=== PATIENT | male | born 1930 | race Caucasian/White ===

== ENCOUNTER 2018-06-13 11:46 | Inpatient (IN) | payer MEDICARE, OTHER ==
[~2018-06-13] VITALS: Ht 180.3 cm; Wt 90.0 kg
[~2018-06-13 11:46] MED LIST: LIPITOR PO; LISINOPRIL; METOPROLOL PO; NITROQUICK
[2018-06-13] MEDS ORDERED: SODIUM CHLORIDE 0.9% 1000ML 1,000 ML IV STA (12:10)
[2018-06-13 12:28] LABS: BASOPHILS # (AUTO) 0.2 (0.0-0.1); BASOPHILS % 0.9 % (0.0-1.0); EOSINOPHILS # (AUTO) 0.3 (0.0-0.4); EOSINOPHILS % 1.1 % (0.0-6.0); LYMPHOCYTES # (AUTO) 1.1 (1.0-3.2); LYMPHOCYTES % 4.9 % (18.0-39.1); MEAN CORPUSCULAR HEMOGLOBIN 27.2 pg (28-32); MEAN CORPUSCULAR HGB CONC 31.7 g/dL (31-35); MEAN CORPUSCULAR VOLUME 85.8 fL (81-99); MONOCYTES # (AUTO) 4.5 (0.2-0.8); MONOCYTES % 19.7 % (4.4-11.3); NEUTROPHILS # (AUTO) 16.2 (2.1-6.9); NEUTROPHILS % 71.9 % (38.7-80.0); PLATELET COUNT 585 x10e3/uL (140-360); RED BLOOD COUNT 4.78 x10e6/uL (4.3-5.7); RED CELL DISTRIBUTION WIDTH 15.4 % (11.7-14.4)
[2018-06-13 12:38] LABS: INR 1.04; PROTHROMBIN TIME 14.5 seconds (11.9-14.5)
[2018-06-13 12:39] LABS: PARTIAL THROMBOPLASTIN TIME 36.9 seconds (23.8-35.5)
[2018-06-13 12:45] LABS: ALANINE AMINOTRANSFERASE 10 IU/L (0-55); ALBUMIN 3.8 g/dL (3.5-5.0); ALBUMIN/GLOBULIN RATIO 1.4 (0.8-2.0); ALKALINE PHOSPHATASE 95 IU/L (40-150); ANION GAP 15.9 mmol/L (8-16); BLOOD UREA NITROGEN 25 mg/dL (7-26); BUN/CREATININE RATIO 20 (6-25); CALCIUM 9.1 mg/dL (8.4-10.2); CARBON DIOXIDE 26 mmol/L (22-29); CHLORIDE 103 mmol/L (98-107); CREATINE KINASE 15 IU/L (30-200); CREATININE, SERUM 1.23 mg/dL (0.72-1.25); EST GLOMERULAR FILTRATION RATE 55 ML/MIN (60-); GLUCOSE 141 mg/dL (74-118); POTASSIUM 3.9 mmol/L (3.5-5.1); SODIUM 141 mmol/L (136-145)
[2018-06-13 13:18] LABS: CLARITY,URINE CLEAR (CLEAR); COLOR,URINE YELLOW (YELLOW); LEUKOCYTE ESTERASE ,URINE NEGATIVE (NEGATIVE); NITRITE,URINE NEGATIVE (NEGATIVE); PROTEIN,URINE DIPSTICK 1+ (NEGATIVE)
[2018-06-13 13:19] LABS: BILIRUBIN,URINE NEGATIVE (NEGATIVE); KETONES,URINE NEGATIVE (NEGATIVE); URINE UROBILINOGEN 0.2 mg/dL (0.2 - 1)
[2018-06-13 13:25] LABS: BACTERIA,URINE FEW /HPF; EPITHELIAL CELLS,URINE RARE /LPF; RBC,URINE 0-5 /HPF (0-5)
--- NOTE | 2018-06-13 13:35 | NUR ---
PATIENT TO ROOM 9
--- NOTE | 2018-06-13 15:33 | Diagnostic Imaging Report ---
EXAMINATION: CT scan of the chest without contrast. TECHNIQUE: Spiral CT images of the chest were performed from the lung apices to the level of the adrenal glands. No intravenous contrast was administered per referring physician request. Coronal and sagittal reformatted images were obtained. COMPARISON: None. CLINICAL HISTORY:Fall, left chest hematoma DISCUSSION: ABSENCE OF INTRAVENOUS CONTRAST DECREASES SENSITIVITY FOR DETECTION OF FOCAL LESIONS AND VASCULAR PATHOLOGY. LINES/TUBES: None. LUNGS AND AIRWAYS: 5 mm solid nodule right upper lobe series 3 image 47. Filling defects within multiple small subsegmental bronchi of the bilateral lower lobes, left greater than right, with resultant groundglass opacities. Mild biapical pleural-parenchymal scar. Trachea, mainstem bronchi, and lobar bronchi are patent. PLEURA: Trace left pleural effusion, average internal attenuation 5-10 Hounsfield units. HEART AND MEDIASTINUM: 2.3 cm cyst projecting from the posterior left thyroid lobe. Ectasia of the ascending thoracic aorta (4.1 cm). Atherosclerotic calcification of the [place] coronary arteries and great vessel origins. Tortuous innominate artery. No axillary, hilar, or mediastinal lymphadenopathy. No pericardial effusion. LYMPH NODES: As above. ABDOMEN: Visualized portions of the liver, spleen, pancreas, and adrenals are unremarkable. The stomach is collapsed. BONES AND SOFT TISSUES: No acute fractures. Inferior to the left scapula and deep to the trapezius muscle there is a lentiform hyperattenuating collection measuring 35-40 Hounsfield units in density, measuring 10.1 cm oblique AP x 3.3 cm oblique transverse x 9.3 cm oblique craniocaudal as seen on series 2 image 88. Overlying subcutaneous fat stranding compatible with soft tissue contusion. IMPRESSION: Left posterior inferolateral chest wall hematoma as above measuring 3.3 cm in maximum thickness, without underlying rib fracture or pneumothorax. Bilateral lower lobe aspiration pneumonitis left worse than right, with a trace presumably reactive left pleural effusion. 5 mm right upper lobe pulmonary nodule may be assessed for stability by CT scan of the chest in 12 months if the patient is at high risk of malignancy. Atherosclerotic vascular disease. Signed by: Dr. Jeff Hernandez M.D. on 06/13/2018 3:30 PM
[2018-06-13] MEDS ORDERED: PIPER-TAZ 3.375 GM 50 ML IV ONE (15:45)
--- NOTE | 2018-06-13 16:58 | NUR ---
PT RE-EVALUATED BY DR. JACINTO
--- NOTE | 2018-06-13 17:30 | NUR ---
WAFFLE MATTRESS PLACED ON STRETCHER. PATIENT HAS BEEN AMBULATING TO BATHROOM WITH ASSIST.
--- NOTE | 2018-06-13 17:42 | NUR ---
DAUGHTER AT BEDSIDE, UPDATED ON PLAN OF CARE PATIENT REPOSITIONED GIVEN COFFEE PER REQUEST. OKAY PER DR. JACINTO
[2018-06-13] MEDS ORDERED: ASPIRIN81 MG PO (18:45)
[2018-06-13] MEDS ORDERED: SYNTHROID75 MCG PO (18:45)
[2018-06-13] MEDS ORDERED: AZITHROMYCIN 500MG/SOD CHL 0.9% 250ML BAG IV SCH (19:00)
[2018-06-13] MEDS ORDERED: ASPIRIN 81 MG CHEW TAB PO ONE (19:00)
--- OUTSIDE RECORDS SUMMARY | 2018-06-13 20:43 | XMS REPORT ---
Author Author [facility] Address Unknown Phone Unavailable Care Team Providers Care Loss Prevention Detective Name Role Phone Saran JACINTO Unavailable Unavailable Problems This patient has no known problems. Allergies, Adverse Reactions, Alerts This patient has no known allergies or adverse reactions. Medications This patient has no known medications. Results Test Description Test Time Test Comments Text Results Atomic Results Result Comments CT CHEST WO 2018-06-13 15:12:00 [facility] [address] [place] [address] Patient Name: JEFF PRADO MR #: [id number] : 1930 Age/Sex: 88/M Req #: [id number] Adm Physician: Ordered by: ILAN JACINTO MD Report #: [id number] Location: ER Room/Bed: Procedure: [id number] CT/CT CHEST WO Exam Date: 06/13/18 Exam Time: 1437 REPORT STATUS: Signed EXAMINATION: CT scan of the chest without contrast. BARTOLO HNIQUE: Spiral CT images of the chest were performed from the lung apices to the level of the adrenal glands. No intravenous contrast was administered per referring physician request. Coronal and sagittal reformatted images were obtained. COMPARISON: None. CLINICAL HISTORY:Fall, left chest hematoma DISCUSSION: ABSENCE OF INTRAVENOUS CONTRAST DECREASES SENSITIVITY FOR DETECTION OF FOCAL LESIONS AND VASCULAR PATHOLOGY. LINES/TUBES: None. LUNGS AND AIRWAYS: 5 mm solid nodule right upper lobe series 3 image 47. Filling defects within multiple small subsegmental bronchi of the bilateral lower lobes, left greater than right, with resultant groundglass opacities. Mild biapical pleural-parenchymal scar. Trachea, mainstem bronchi, and lobar bronchi are patent. PLEURA: Trace left pleural effusion, average internal attenuation 5-10 Hounsfield units. HEART AND MEDIASTINUM: 2.3 cm cyst projecting from the posterior left thyroid lobe. Ectasia of the ascending thoracic aorta (4.1 cm). Atherosclerotic calcification of the [place] coronary arteries and great vessel origins. Tortuous innominate artery. No axillary, hilar, or mediastinal lymphadenopathy. No pericardial effusion. LYMPH NODES: As above. ABDOMEN: Visualized portions of the liver, spleen, pancreas, and adrenals are unremarkable. The stomach is collapsed. BONES AND SOFT TISSUES: No acute fractures. Inferior to the left scapula and deep to the trapezius muscle there is a lentiform hyperattenuating collection measuring 35-40 Hounsfield units in density, measuring 10.1 cm oblique AP x 3.3 cm oblique transverse x 9.3 cm oblique craniocaudal as seen on series 2 image 88. Overlying subcutaneous fat stranding compatible with soft tissue contusion. IMPRESSION: Left posterior inferolateral chest wall hematoma as above measuring 3.3 cm in maximum thickness, without underlying rib fracture or pneumothorax. Bilateral lower lobe aspiration pneumonitis left worse than right, with a trace presumably reactive left pleural effusion. 5 mm right upper lobe pulmonary nodule may be assessed for stability by CT scan of the chest in 12 months if the patient is at high risk of malignancy. Atherosclerotic vascular disease. Signed by: Dr. Isaiah Molina M.D. on 06/13/2018 3:30 PM Dictated By: ISAIAH MOLINA MD [id number] Transcribed By: NORBERTO on 06/13/18 1530 COPY TO: ILAN JACINTO MD
[2018-06-13 21:25] LABS: CREATINE KINASE MB 0.7 ng/mL (0-5.0)
[2018-06-13] MEDS: SODIUM CHLORIDE 0.9% 1000ML 1,000 ML IV SCH (21:34)
[2018-06-13] MEDS: AZITHROMYCIN 500MG/NS 250 ML 250 ML IV SCH (21:57)
[2018-06-14] VITALS (7 sets, daily range): BP systolic 109–133; BP diastolic 58–71
[2018-06-14] MEDS: PIPER-TAZ 3.375 GM 50 ML IV SCH ×4 (01:00→18:08)
[2018-06-14] MEDS: ALBUTEROL SULF 0.083% NEB SOLN 3 ML NEB NEB SCH ×2 (03:40→07:00)
[2018-06-14] MEDS: IPRATROPIUM BROMIDE 0.02% 2.5 ML NEB NEB SCH ×4 (03:40→19:55)
--- NOTE | 2018-06-14 05:31 | Diagnostic Imaging Report ---
CHEST SINGLE (PORTABLE), 06/14/2018 5:00 AM Technique: CHEST SINGLE (PORTABLE) Comparison: CT 06/13/2018, x-ray from 04/09/2011 Clinical history: Pneumonia Findings: See Impression Impression: 1. Stable mildly enlarged cardiomediastinal silhouette with tortuous/ectatic ascending aorta. 2. Mild left basilar opacity which may reflect atelectasis or aspiration/pneumonia with small effusion. Signed by: Dr Elaine Carr MD on 06/14/2018 5:27 AM
[2018-06-14 05:55] LABS: BASOPHILS # (AUTO) 0.2 (0.0-0.1); BASOPHILS % 0.9 % (0.0-1.0); EOSINOPHILS # (AUTO) 0.3 (0.0-0.4); EOSINOPHILS % 1.2 % (0.0-6.0); HEMATOCRIT 36.6 % (38.2-49.6); HEMOGLOBIN 11.5 g/dL (14.0-18.0); LYMPHOCYTES # (AUTO) 1.1 (1.0-3.2); LYMPHOCYTES % 5.4 % (18.0-39.1); MEAN CORPUSCULAR HEMOGLOBIN 26.6 pg (28-32); MEAN CORPUSCULAR HGB CONC 31.4 g/dL (31-35); MEAN CORPUSCULAR VOLUME 84.7 fL (81-99); MONOCYTES # (AUTO) 4.2 (0.2-0.8); MONOCYTES % 20.3 % (4.4-11.3); NEUTROPHILS # (AUTO) 14.6 (2.1-6.9); PLATELET COUNT 542 x10e3/uL (140-360); RED BLOOD COUNT 4.32 x10e6/uL (4.3-5.7); RED CELL DISTRIBUTION WIDTH 15.3 % (11.7-14.4)
[2018-06-14 06:12] LABS: CREATINE KINASE MB 0.8 ng/mL (0-5.0)
[2018-06-14 06:23] LABS: ANION GAP 15.3 mmol/L (8-16); BLOOD UREA NITROGEN 20 mg/dL (7-26); BUN/CREATININE RATIO 19 (6-25); CALCIUM 8.1 mg/dL (8.4-10.2); CARBON DIOXIDE 21 mmol/L (22-29); CHLORIDE 107 mmol/L (98-107); CREATININE, SERUM 1.06 mg/dL (0.72-1.25); EST GLOMERULAR FILTRATION RATE > 60 ML/MIN (60-); GLUCOSE 133 mg/dL (74-118); POTASSIUM 3.3 mmol/L (3.5-5.1); SODIUM 140 mmol/L (136-145)
--- NOTE | 2018-06-14 06:37 | NUR ---
called consult for dr wu, covering, will see patient during rounds
--- NOTE | 2018-06-14 07:00 | NUR ---
ASSUMED CARE AT THIS TIME. PATIENT AWKE AND ALERT SITTING IN BED. RESP EVEN AND UNLABORED. SKIN WARM AND DRY. NO SIGNS OF ACUTE DISTRESS NOTED AT THIS TIME. DENIES ANY C/O AT THIS TIME.
--- NOTE | 2018-06-14 07:00 | NUR ---
walking rounds with vicki HURD
[2018-06-14 08:10] LABS: LYMPHOCYTES % (MANUAL) 10 % (19-48); METAMYELOCYTES % (MANUAL) 1 % (0-0); MONOCYTES % (MANUAL) 20 % (3.4-9.0); MYELOCYTES % (MANUAL) 1 % (0-0); NEUTROPHILS % (MANUAL) 68 % (40-74)
[2018-06-14 08:11] LABS: ANISOCYTOSIS MODERATE; HOWELL-JOLLY BODIES FEW; HYPOCHROMASIA SLIGHT; PLATELET ESTIMATE ADEQUATE; PLATELET MORPHOLOGY COMMENT NORMAL; RBC MORPHOLOGY COMMENT NORMAL
--- NOTE | 2018-06-14 08:17 | NUR ---
PATIENT AWKE AND ALERT SITTING IN BED. RESP EVEN AND UNLABORED. SKIN WARM AND DRY. NO SIGNS OF ACUTE DISTRESS NOTED AT THIS TIME. DENIES ANY C/O AT THIS TIME. EDUCATED PATIENT ON THE CURRENT PLAN OF CARE, VERBALIZED UNDERSTANDING.
[2018-06-14] MEDS ORDERED: ASPIRIN 81 MG CHEW TAB PO SCH (09:00)
[2018-06-14] MEDS ORDERED: ASPIRIN 325 MG TAB PO SCH (09:00)
--- NOTE | 2018-06-14 09:01 | NUR ---
DR PUENTES AT BEDSIDE FOR PATIENT EVAL. NO SIGNS OF ACUTE DISTRESS NOTED AT THIS TIME.
[2018-06-14] MEDS: METOPROLOL TARTRATE 25 MG TAB PO SCH ×2 (09:30→17:34)
--- NOTE | 2018-06-14 09:40 | NUR ---
TELEMETRY #[id number] APPLIED, TOLERATED WELL. NO SIGNS OF ACUTE DISTRESS NOTED AT THIS TIME.
--- NOTE | 2018-06-14 09:47 | Consultation ---
DATE OF CONSULTATION: PULMONARY CONSULTATION This is a patient of Dr. Harmon and Dr. Horton. This charming 88-year-old gentleman, a lifelong resident of [place], was admitted with fall at home at night. He is uncertain why he lost his balance. He denies losing consciousness. He has a history of coronary disease with an NH in 2007 and history of new-onset atrial fibrillation assumed though he has been on metoprolol and aspirin in the past, and this may be an old problem. Previously, he had been admitted to the hospital in 2012 with TIA. At that time, he was diagnosed with hypertension, hyperlipidemia, probable myeloproliferative disorder, hypothyroidism, history of mild mitral regurgitation, calcified valve. He is a tall, white male in no acute distress, looking his stated age. His other medications include Synthroid 75 mcg and Lipitor. He has noted a weight loss over the last year. He smoked for 10 years. 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 He worked for [employer]. PHYSICAL EXAMINATION GENERAL: Well-developed white male in no acute distress. HEENT: Head is normocephalic and atraumatic. Eyes: The extraocular movements are intact. CHEST: Chest wall hematoma. LUNGS: Clear. HEART: Irregular rhythm. ABDOMEN: Nontender. EXTREMITIES: Not edematous. IMPRESSION 1. Near syncope. 2. Myeloproliferative disorder with monocytosis, metamyelocytes and myelocytes. PLAN: Therapy of atrial fibrillation. Consider anticoagulation. Monitor potassium. Continue thyroid replacement. Thank you for this kind referral. ISAIAH PUENTES MD Job#: [id number]
--- NOTE | 2018-06-14 10:15 | NUR ---
RECEIVED PATIENT FROM THE EMERGENCY ROOM. ALERT AND ORIENTED. O2 AT 2L/MIN VIA NASAL CANNULA. ASSESSMENT DONE. BED ALARM ON
--- NOTE | 2018-06-14 11:00 | NUR ---
PATIENT REFUSED TO USE OXYGEN. NO C/O SHORTNESS OF BREATH OR DIFFICULTY OF BREATHING.
--- NOTE | 2018-06-14 11:17 | NUR ---
PAGED AND NOTIFIED THE POTASSIUM LEVEL TO DR RADER HE SAID HE COMING TO SEE THE PATIENT
[2018-06-14] MEDS ORDERED: POTASSIUM CHLORIDE 20 MEQ TAB CR PO NR (12:45)
--- NOTE | 2018-06-14 13:07 | History and Physical ---
CHIEF COMPLAINT: Generalized weakness, dizziness, frequent falls for last few days. HISTORY OF PRESENT MEDICAL ILLNESS: An 88-year-old pleasant white male with past medical history of multiple medical problems was admitted at [facility] last evening with the above complaints. Patient was seen in my office yesterday morning with generalized weakness, fatigue, tiredness, dizziness. Also, patient had a fall with left-sided chest wall pain for last few days; and, hence, patient came to my office. From my office, patient was referred to ER for further workup and treatment. In the emergency room, patient was seen by emergency room doctor, diagnosed with bilateral lower lobe pneumonia and a left thoracic 3 cm hematoma status post fall and admitted for further workup and treatment. At present patient sitting comfortably in bed, in no apparent distress. No chest pain, no shortness of breath. No nausea, vomiting, diarrhea. No abdominal pain. No loss of consciousness. No palpitations. No headaches. No hematemesis, no melena, no hematuria, no dysuria. No fever. No cough. No witnessed seizures. PAST MEDICAL HISTORY: 1. CAD. 2. Hypertension. 3. Hypothyroidism. 4. Osteoarthritis. 5. Essential tremors. 6. Leukocytosis. MEDICATIONS: As listed in chart. SURGICAL HISTORY: None. SOCIAL HISTORY: No smoking, no alcohol, no illicit drug use. . Lives with family. FAMILY HISTORY: Noncontributory. REVIEW OF SYSTEMS: As per history of present illness. ALLERGIES: NO KNOWN DRUG ALLERGIES. PHYSICAL EXAMINATION: GENERAL: Patient is alert, oriented x3, in no apparent distress, sitting in chair. VITALS: Temperature is 98, pulse is 86 per minute, respiratory rate is 16 per minute, blood pressure is 136/60, saturation is 97%. SKIN: No cyanosis, no icterus, no pallor. HEENT: Normocephalic, atraumatic. PERRLA. NECK: Soft, supple. No JVD. No carotid bruit. No lymphadenopathy. LUNGS: Air entry bilaterally equal. No rales, no rhonchi. ABDOMEN: Soft. Nontender. Bowel sounds plus. DOSIMETRIST: Alert, awake. Oriented times 3. Moves extremities. No focal deficit. THORAX: Left-sided chest wall ecchymosis and tenderness plus. LABS: This morning white count 20.5, hemoglobin 11.5, hematocrit 36.6, platelet 542. Sodium 140, potassium 3.8, chloride 107, bicarb 21, BUN 20, creatinine is 1.06, glucose 133. LFTs noted. Cardiac enzymes times [address] chest shows left posterior and inferolateral chest wall hematoma about 3.3 cm maximum thickness without underlying rib fracture or pneumothorax, bilateral lower lobe aspiration pneumonitis left worse than right with a trace presumably reactive left pleural effusion and pulmonary nodule of 5 mm size, atherosclerotic cardiovascular disease. EKG shows atrial fibrillation at rate of 78 beats per minute. ASSESSMENT: 1. Bilateral pneumonia. 2. Status post fall, left thorax hematoma. 3. Atrial fibrillation, possibly new onset. 4. History of coronary artery disease, hypertension and hypothyroidism. 5. Leukocytosis, likely myeloproliferative disease. PLAN: Admit patient to [facility]. Patient started on IV Zosyn, IV Zithromax. Pancultures. Cardiology consultation Dr. Madrigal. ID consultation Dr. Dc. Pulmonary consultation Dr. Chopra. Hematology consultation Dr. Cullen. Further care and treatment as per clinical course of patient in the hospital. Discussed with the patient in detail. Job#: [id number] EV
--- NOTE | 2018-06-14 14:02 | Consultation ---
DATE OF CONSULTATION: June 14, 2018 I want to thank you for this kind consult. Mr. Torres is a pleasant 88-year-old gentleman who lives with his . Apparently, had a fall approximately about a month ago. He was walking across the living room when he realized that he was falling. He managed to change the direction of his fall, and instead of hitting the china cabinet, hit the arm on the chair. He bruised his left side and left flank with some pain. Apparently, had an appointment with Dr. Harmon in the office. Labs were drawn. The patient has abnormal lab results. The patient is admitted to [facility] for evaluation and treatment of possible medical condition. On admission, urine culture came back negative for 24 hours. Blood culture is pending. Had a chest CT done, which showed left posterior inferolateral chest wall hematoma measuring 3.3 cm in maximum thickness without underlying rib fracture or pneumothorax. He also had bilateral lower lobe aspiration pneumonitis, left worse than right with trace presumably reactive left pleural effusion. Also, 5 mm right upper lobe pulmonary nodule. Maybe associated by CT scan in about a year, which was recommended. On CBC, his white count is 20.51, which was 22.57 on admission. His hemoglobin is 11.5 and platelet count is 542,000. Sodium 140, potassium 3.3, chloride 107, CO2 21, BUN 20, creatinine 1.06. Lactic acid is 21, slightly elevated from the maximum, which maximum is 19.8. His creatinine kinase is 15, CK-MB of 0.8. AST 13, ALT 10. Influenza A and B screen came back negative. PAST MEDICAL HISTORY: The patient has a history of atrial fibrillation, history of fall and debility without loss of consciousness, history of TIA, hypothyroidism, probable myeloproliferative disease, hyperlipidemia, hypertension, mild mitral regurgitation, calcified valve. ALLERGIES: ZOLPIDEM TARTRATE. LABORATORY STUDIES: As mentioned in history of present illness above. MEDICATIONS: List has been reviewed. As far infectious disease point of view, the patient is on Zithromax and Zosyn. Creatinine of 1.06. REVIEW OF SYSTEMS: Some pain and discomfort in the left side. No shortness of breath. No nausea, vomiting, fever, chills, chest pain. PHYSICAL EXAMINATION GENERAL: Seems pretty alert and oriented times 3. Very pleasant. He remembers all these details. All of this information is provided by the patient. Comfortable in bed. CV: S1 and S2. CHEST: Equal expansion. Decreased air flow. Decreased breath sounds. No acute distress. ABDOMEN: Soft. No distention. Nontender. He has a bruise on the left side on the back and the flank, which they do not seem to be tender. EXTREMITIES: Moves all extremities. No significant edema. HEENT: Moist. No pallor. No JVD. ASSESSMENT AND PLAN: This is an 88-year-old gentleman admitted with leukocytosis and pneumonia bilaterally. Has some electrolyte abnormalities. Clinically, no acute distress. I discussed with Dr. Dc in detail, which he agreed to Zosyn and Zithromax. At this point, will follow up with the CBC and the white count. Clinically, the patient is in no acute distress. Alert and oriented. Further management of this patient is based on daily findings on laboratory and physical examination. I want to thank you for this consult. DICTATED BY JUAN J GUIDO Job#: [id number] CT
[2018-06-14 14:15] LABS: CREATINE KINASE MB 0.9 ng/mL (0-5.0)
--- NOTE | 2018-06-14 14:16 | NUR ---
PAGED AND NOTIFIED THE CONSULTATION TO DR SHANKAR HE COMING THIS EVENING TO SEE THE PT
[2018-06-14] MEDS: SODIUM CHLORIDE 0.9% 1000ML 1,000 ML IV SCH (14:51)
--- NOTE | 2018-06-14 15:43 | NUR ---
SPEECH THERAPY RECOMMENDED MBS PAGED AND NOTIFIED DR RADER GOT THE ODER
--- NOTE | 2018-06-14 18:45 | NUR ---
PATIENT IS ASLEEP IN BED. BED ALARM ON. SIDE RAILS UP.
[2018-06-14] MEDS: ALBUTEROL SULF 0.083% NEB SOLN 3 ML NEB NEB PRN (19:55)
[2018-06-14] MEDS: AZITHROMYCIN 500MG/NS 250 ML 250 ML IV SCH (20:35)
[2018-06-14] MEDS: ATORVASTATIN 40 MG TAB PO SCH (20:35)
[2018-06-15] VITALS (7 sets, daily range): BP systolic 113–140; BP diastolic 56–68
[2018-06-15] MEDS: IPRATROPIUM BROMIDE 0.02% 2.5 ML NEB NEB SCH ×4 (03:10→19:30)
[2018-06-15] MEDS: ALBUTEROL SULF 0.083% NEB SOLN 3 ML NEB NEB PRN ×2 (03:10→07:25)
[2018-06-15] MEDS: SODIUM CHLORIDE 0.9% 1000ML 1,000 ML IV SCH (05:22)
[2018-06-15] MEDS: PIPER-TAZ 3.375 GM 50 ML IV SCH ×4 (05:22→17:06)
--- NOTE | 2018-06-15 07:00 | NUR ---
RCD PT AT BED PT IS ALERT AND ORIENTED PT RESTING ON BED NO SIGNS OF ANY DISTRESS NOTED IV PATENT BED LOW AND LOCKED CALL LIGHT IN REACH
[2018-06-15] MEDS: ASPIRIN 81 MG CHEW TAB PO SCH (09:00)
[2018-06-15] MEDS: METOPROLOL TARTRATE 25 MG TAB PO SCH ×2 (09:00→17:00)
[2018-06-15] MEDS: LEVOTHYROXINE SODIUM 75 MCG TAB PO SCH (09:30)
--- NOTE | 2018-06-15 09:42 | NUR ---
PT WENT TO PROCEDURE IN SAFE CONDITION
--- NOTE | 2018-06-15 11:31 | Consultation ---
DATE OF CONSULTATION: CARDIOLOGY CONSULTATION REASON FOR CONSULTATION: Dizziness. HISTORY OF PRESENT ILLNESS: This is an 88-year-old man with a history of hypertension, hypothyroidism, hyperlipidemia, and possible nonobstructive coronary artery disease, who presented to the emergency department after a fall with trauma to his flank and chest wall. Patient states that he was walking through his living room and became suddenly dizzy with mild weakness and fell into his chair after trying to avoid his china cabinet. Patient states that he has had progressive dizziness for the last few weeks to months. He denies any chest pain or shortness of breath. Upon arrival to the emergency department, he was noted to have atrial fibrillation with a controlled ventricular response and normal blood pressures. Patient cannot report to me that he has had a history of atrial fibrillation in the past. He denies any myocardial infarctions, heart failure, valvular heart disease, or arrhythmias in the past. REVIEW OF SYSTEMS: A 12-point review of systems was conducted and is negative otherwise in the HPI. PAST MEDICAL HISTORY: Hypertension, hypothyroidism, coronary artery disease. He denies any history of heart failure, valvular heart disease, or arrhythmias in the past. Patient does state that many years ago [place], he had "a heart attack" and possibly underwent catheterization. Patient states that the doctors could not "place the stent." He did not follow up with a quality assurance associate for quite some time. PAST SURGICAL HISTORY: Cardiac catheterization. FAMILY HISTORY: No premature coronary artery disease or sudden cardiac . SOCIAL HISTORY: No illicit drug use, alcohol use, or tobacco use. ALLERGIES: NO KNOWN DRUG ALLERGIES. MEDICATIONS: See medication reconciliation form. PHYSICAL EXAMINATION VITAL SIGNS: Temperature is 97.5, heart rate is 78, respirations are 18, blood pressure is 98% on 2 liters nasal cannula. GENERAL: He is a well-appearing, well-built, elderly man, lying comfortably in bed. HEENT: Head is normocephalic, atraumatic. Eyes: The extraocular movements are intact. Conjunctivae clear. NECK: No JVD, no bruits. CARDIOVASCULAR: He is irregularly irregular. Normal rate. Normal S1 and S2. Mild systolic murmur at the left sternal border. LUNGS: Mildly diminished breath sounds in bilateral bases. ABDOMEN: Soft, nontender, nondistended. EXTREMITIES: No edema. VASCULAR: Diminished pulses. SKIN: Warm, dry, intact. NEUROLOGIC: No focal deficits noted. Cranial nerves grossly intact. PSYCHIATRIC: Normal mood and affect. LABORATORY DATA: White blood cell count 20.5, hemoglobin 11.5, platelets 542. Creatinine is 1.06, potassium 3.3. Negative troponins x3. A 12-lead electrocardiogram shows atrial fibrillation with controlled ventricular response. CT of the chest shows inferolateral chest wall hematoma, bilateral lobe aspiration pneumonitis, left worse than right. Chest x-ray shows mild left basilar opacity, stable, mildly enlarged cardiomediastinal silhouette. Telemetry monitoring reveals paroxysmal atrial fibrillation with episodes of normal sinus rhythm with premature atrial complexes. IMPRESSIONS 1. Pneumonia. 2. Dizziness with falls. 3. Paroxysmal atrial fibrillation. 4. Coronary artery disease. 5. Hypertension. 6. Hypothyroidism. 7. Leukocytosis. RECOMMENDATIONS: Patient cannot report an episode in the past of atrial fibrillation. He is not on any oral anticoagulation, only on aspirin. Patient has paroxysms of his atrial fibrillation with times of normal sinus rhythm. Patient does have an elevated CHADS-VASc score given his age and history of hypertension. Would avoid anticoagulation at this point in time given recent falls with chest wall hematoma. Continue aspirin. Check a 2-D echocardiogram. Also would recommend checking thyroid function studies. Patient does have mild hypokalemia. Would correct this for a level greater than 4 and check a magnesium to keep the level greater than 2. He is otherwise hemodynamically stable on current cardiovascular medications. Thank you for the consultation. Job#: [id number] JOSSELYN
--- NOTE | 2018-06-15 13:32 | Diagnostic Imaging Report ---
EXAM: Modified barium swallow with Speech Pathologist INDICATION: ^TO RULEOUT ASPIRATION ^[id number] ^0930 ^Y COMPARISON: FINDINGS: Multiple consistencies of barium were administered by mouth by the speech pathologist and fluoroscopic images obtained. IMPRESSION: Laryngeal penetration with thin liquids and liquid portion of mixed texture barium. No aspiration observed. Refer to speech pathology report for further details and recommendations. Signed by: Dr. Jeff Hernandez M.D. on 06/15/2018 1:29 PM
--- NOTE | 2018-06-15 18:43 | NUR ---
PT RESTING ON BED BED SIDE REPORT GIVEN TO ONCOMING NURSE
[2018-06-15] MEDS: AZITHROMYCIN 500MG/NS 250 ML 250 ML IV SCH (20:01)
[2018-06-15] MEDS: ATORVASTATIN 40 MG TAB PO SCH (20:01)
[2018-06-16] VITALS (8 sets, daily range): BP systolic 102–131; BP diastolic 54–73
[2018-06-16] MEDS: PIPER-TAZ 3.375 GM 50 ML IV SCH ×2 (00:30→06:19)
[2018-06-16] MEDS: IPRATROPIUM BROMIDE 0.02% 2.5 ML NEB NEB SCH ×4 (02:55→19:05)
[2018-06-16 04:51] LABS: BASOPHILS # (AUTO) 0.2 (0.0-0.1); BASOPHILS % 1.6 % (0.0-1.0); EOSINOPHILS # (AUTO) 0.6 (0.0-0.4); EOSINOPHILS % 3.9 % (0.0-6.0); HEMATOCRIT 34.7 % (38.2-49.6); HEMOGLOBIN 10.6 g/dL (14.0-18.0); LYMPHOCYTES # (AUTO) 1.3 (1.0-3.2); LYMPHOCYTES % 8.8 % (18.0-39.1); MEAN CORPUSCULAR HEMOGLOBIN 26.5 pg (28-32); MEAN CORPUSCULAR HGB CONC 30.5 g/dL (31-35); MEAN CORPUSCULAR VOLUME 86.8 fL (81-99); MONOCYTES # (AUTO) 2.7 (0.2-0.8); NEUTROPHILS # (AUTO) 9.2 (2.1-6.9); NEUTROPHILS % 64.8 % (38.7-80.0); PLATELET COUNT 565 x10e3/uL (140-360); RED CELL DISTRIBUTION WIDTH 15.7 % (11.7-14.4)
[2018-06-16 05:09] LABS: ALBUMIN 2.8 g/dL (3.5-5.0); ALBUMIN/GLOBULIN RATIO 1.3 (0.8-2.0); ANION GAP 13.4 mmol/L (8-16); CALCIUM 8.1 mg/dL (8.4-10.2); CREATININE, SERUM 1.15 mg/dL (0.72-1.25); POTASSIUM 3.4 mmol/L (3.5-5.1)
[2018-06-16] MEDS ORDERED: POTASSIUM CHLORIDE 20 MEQ TAB CR PO ONE (09:00)
[2018-06-16 09:10] LABS: ANISOCYTOSIS SLIGHT; EOSINOPHILS % (MANUAL) 7 % (0-7); HYPOCHROMASIA SLIGHT; LYMPHOCYTES % (MANUAL) 11 % (19-48); MONOCYTES % (MANUAL) 9 % (3.4-9.0); MYELOCYTES % (MANUAL) 1 % (0-0); NEUTROPHILS % (MANUAL) 67 % (40-74)
[2018-06-16 09:11] LABS: PLATELET ESTIMATE ADEQUATE; PLATELET MORPHOLOGY COMMENT NORMAL; POIKILOCYTOSIS SLIGHT; RBC MORPHOLOGY COMMENT NORMAL
[2018-06-16] MEDS: LEVOTHYROXINE SODIUM 75 MCG TAB PO SCH (09:53)
[2018-06-16] MEDS: ASPIRIN 81 MG CHEW TAB PO SCH (09:54)
[2018-06-16] MEDS: METOPROLOL TARTRATE 25 MG TAB PO SCH ×2 (09:54→17:44)
--- NOTE | 2018-06-16 10:14 | NUR ---
CASE MANAGEMENT INITIAL ASSESSMENT Aircraft Dispatcher to bedside to discuss plan of care with patient/family. CM/SW role and care transitions discussed. Anticipated discharge plan discussed along with duration of care. CM/SW discussed patients right to make decisions in care. CM/SW work hours given. Patient lives: IN OWN HOUSE WITH Admit/Transfer: VIA ED FROM HOME POA/Emergency contact: DAUGHTER DELMIS [phone] Current/Previous Home Health: NONE PCP/Follow-up Care: PRASANTH Current/Previous DME: GAGAN CHAIDEZ Other Services: NONE Employment Status: RETIRED Areas of Concerns: NONE Referral Needs: SNF Education Needs: NONE IMM/CAST given and signed (if applicable): Goal for discharge: GO TO SNF THEN HOME CM/SW left business card at the bedside with contact information. Name and number was also written on the patients whiteboard. Patient verbalized understanding of discussion. CM will follow-up with ongoing discharge and transition of care needs.
--- NOTE | 2018-06-16 10:16 | NUR ---
SPOKE WITH PATIENT WHOM REFERRED ME TO HIS DAUGHTER, GAVE SNF LOCATIONS IN NETWORK DAUGHTER AND PT CHOOSE [facility], WILL SEND CLINICALS TO [phone].
[2018-06-16] MEDS ORDERED: CEFEPIME HCL 1 GM VIAL IV SCH (11:30)
--- NOTE | 2018-06-16 12:53 | NUR ---
PASRR FILED OUT FILED IN CHART WITH COPY PLACED IN FOLDER TO ACCOMPANY PATIENT TO FACILITY, RTF COMPLETED AND PLACED AT DESK WITH NURSE TO CALL REPORT WHEN DISCHARGE ORDER IS WRITTEN AND FACILITY HAS ISSUED A ROOM NUMBER AND PHYSCIAN TO CONTINUE CARE.
[2018-06-16] MEDS: CEFEPIME 1GM/NS 0.9% 50 ML 50 ML IV SCH (14:00)
[2018-06-16] MEDS: METRONIDAZOLE 500MG/NS 100ML 100 ML IV SCH ×2 (15:09→22:10)
--- NOTE | 2018-06-16 16:30 | Progress Note ---
DATE: June 16, 2018 CARDIOLOGY PROGRESS NOTE: SUBJECTIVE: Patient feeling better. Denies any chest pain and shortness of breath has improved. No palpitations. OBJECTIVE VITAL SIGNS: Temperature 96.2. Heart rate 85. Respirations 18. Blood pressure is 102/54. Saturation 100% on 2 liters nasal cannula. GENERAL: Elderly man lying comfortably in bed in no apparent distress. CARDIOVASCULAR: Irregularly irregular. Normal rate. LUNGS: Scattered rhonchi in bilateral lung martinez. ABDOMEN: Soft and nontender. NEUROLOGICAL: No focal deficits noted. CARDIOVASCULAR MEDICATIONS: Reviewed. LABORATORY DATA: Reviewed. White blood cell count 14.2, hemoglobin 10.6, platelets at 565,000. Potassium 3.4. Creatinine is 1.1. IMPRESSION: 1. Paroxysmal atrial fibrillation. 2. Pneumonia. 3. Dizziness with falls. 4. Coronary disease. 5. Hypertension. 6. Hypothyroidism. 7. Leukocytosis with myelodysplastic syndrome. PLAN: Patient is overall stable from a cardiovascular standpoint. He still has a paroxysms of his atrial fibrillation. Continue beta blockers for rate control strategy. Will try to avoid anticoagulation at this point in time given advanced age, recurrent falls and hematoma over his chest fall. Continue full dose aspirin. Echocardiogram showed normal left ventricular systolic function. Check a thyroid function panel and correct all electrolytes to keep potassium greater than 4 and magnesium greater than 2. Continue all other treatment for his pneumonia per primary team. Job#: [id number]
[2018-06-16] MEDS: ATORVASTATIN 40 MG TAB PO SCH (22:08)
[2018-06-17] VITALS (8 sets, daily range): BP systolic 115–146; BP diastolic 69–76
[2018-06-17] MEDS: CEFEPIME 1GM/NS 0.9% 50 ML 50 ML IV SCH ×2 (00:45→13:30)
[2018-06-17] MEDS: METRONIDAZOLE 500MG/NS 100ML 100 ML IV SCH ×3 (06:07→22:00)
[2018-06-17] MEDS: IPRATROPIUM BROMIDE 0.02% 2.5 ML NEB NEB SCH ×4 (06:30→19:07)
[2018-06-17] MEDS: ALBUTEROL SULF 0.083% NEB SOLN 3 ML NEB NEB PRN (06:30)
[2018-06-17 06:58] LABS: ANION GAP 12.6 mmol/L (8-16); BLOOD UREA NITROGEN 13 mg/dL (7-26); BUN/CREATININE RATIO 13 (6-25); CALCIUM 8.1 mg/dL (8.4-10.2); CARBON DIOXIDE 24 mmol/L (22-29); CHLORIDE 112 mmol/L (98-107); CREATININE, SERUM 1.01 mg/dL (0.72-1.25); EST GLOMERULAR FILTRATION RATE > 60 ML/MIN (60-); GLUCOSE 99 mg/dL (74-118); MAGNESIUM 1.7 MG/DL (1.3-2.1); POTASSIUM 3.6 mmol/L (3.5-5.1); SODIUM 145 mmol/L (136-145)
[2018-06-17] MEDS: METOPROLOL TARTRATE 25 MG TAB PO SCH ×2 (08:30→17:39)
[2018-06-17] MEDS: ASPIRIN 81 MG CHEW TAB PO SCH (08:36)
[2018-06-17] MEDS: LEVOTHYROXINE SODIUM 75 MCG TAB PO SCH (08:36)
--- NOTE | 2018-06-17 12:48 | Progress Note ---
DATE: June 17, 2018 CARDIOLOGY PROGRESS NOTE SUBJECTIVE: Patient denies chest pain or shortness of breath. OBJECTIVE VITAL SIGNS: Temperature 97.4 degrees, pulse 73, respiratory rate 20, blood pressure 131/76, oxygen saturation 95% on 2 liters nasal cannula. GENERAL: Elderly man, no acute distress, awake and alert. LUNGS: Clear to auscultation bilaterally. No wheezes or crackles. CARDIOVASCULAR: Irregularly irregular. Normal rate. No murmur. Normal S1, S2. ABDOMEN: Soft, nontender. EXTREMITIES: No edema. CARDIAC MEDICATIONS 1. Levothyroxine 75 mcg p.o. daily. 2. Aspirin 81 mg p.o. daily. 3. Atorvastatin 40 mg p.o. q.h.s. 4. Metoprolol tartrate 25 mg p.o. b.i.d. LABORATORY DATA: Sodium 145, potassium 3.6, chloride 112, CO2 of 24, BUN 13, and creatinine 1.01. TELEMETRY: Atrial fibrillation. IMPRESSION Paroxysmal atrial fibrillation, rate controlled. Bilateral lower lobe aspiration pneumonia, left worse than right. Left posterior inferolateral chest wall hematoma. Frequent falls. Coronary artery disease. Hypertension. Hypothyroidism. Leukocytosis. RECOMMENDATIONS: The patient is stable from a cardiac standpoint. He remains in atrial fibrillation. Continue beta-blockers for rate control. Given patient's frequent falls and chest wall hematoma, we will hold anticoagulation for now. Continue current cardiac medications. Replete electrolytes. Antibiotics per primary service. Thank you for this consult. We will continue to follow. Job#: [id number] KVNG
--- NOTE | 2018-06-17 13:15 | NUR ---
Stool sample taken to lab
--- NOTE | 2018-06-17 19:30 | NUR ---
Patient sitting in recliner chair watching TV. AAO x 3. No complaints of pain. No signs of respiratory distress. Patient instructed to call for assistance when needed. Call light within reach.
[2018-06-17] MEDS: ATORVASTATIN 40 MG TAB PO SCH (22:00)
[2018-06-18] VITALS: BP 137/71
[2018-06-18] MEDS: CEFEPIME 1GM/NS 0.9% 50 ML 50 ML IV SCH (00:08)
[2018-06-18] MEDS: IPRATROPIUM BROMIDE 0.02% 2.5 ML NEB NEB SCH ×2 (00:35→06:35)
[2018-06-18 04:00] VITALS: BP 147/66
[2018-06-18 05:20] LABS: BASOPHILS # (AUTO) 0.2 (0.0-0.1); BASOPHILS % 1.6 % (0.0-1.0); EOSINOPHILS # (AUTO) 0.6 (0.0-0.4); HEMATOCRIT 34.9 % (38.2-49.6); HEMOGLOBIN 10.7 g/dL (14.0-18.0); LYMPHOCYTES # (AUTO) 1.2 (1.0-3.2); LYMPHOCYTES % 8.6 % (18.0-39.1); MEAN CORPUSCULAR HEMOGLOBIN 27.2 pg (28-32); MEAN CORPUSCULAR HGB CONC 30.7 g/dL (31-35); MEAN CORPUSCULAR VOLUME 88.6 fL (81-99); MONOCYTES # (AUTO) 2.1 (0.2-0.8); MONOCYTES % 14.8 % (4.4-11.3); NEUTROPHILS # (AUTO) 9.9 (2.1-6.9); NEUTROPHILS % 69.2 % (38.7-80.0); PLATELET COUNT 622 x10e3/uL (140-360); RED BLOOD COUNT 3.94 x10e6/uL (4.3-5.7); RED CELL DISTRIBUTION WIDTH 16.5 % (11.7-14.4)
[2018-06-18 05:54] LABS: ALANINE AMINOTRANSFERASE 7 IU/L (0-55); ALBUMIN 3.1 g/dL (3.5-5.0); ALBUMIN/GLOBULIN RATIO 1.4 (0.8-2.0); ALKALINE PHOSPHATASE 69 IU/L (40-150); BLOOD UREA NITROGEN 15 mg/dL (7-26); BUN/CREATININE RATIO 15 (6-25); CALCIUM 8.4 mg/dL (8.4-10.2); CARBON DIOXIDE 24 mmol/L (22-29); CHLORIDE 110 mmol/L (98-107); CREATININE, SERUM 1.03 mg/dL (0.72-1.25); EST GLOMERULAR FILTRATION RATE > 60 ML/MIN (60-); GLUCOSE 90 mg/dL (74-118); SODIUM 143 mmol/L (136-145)
[2018-06-18] MEDS: METRONIDAZOLE 500MG/NS 100ML 100 ML IV SCH (06:30)
--- NOTE | 2018-06-18 07:16 | NUR ---
Shift report given to oncoming nurse. Patient in stable condition.
[2018-06-18 07:45] LABS: EOSINOPHILS % (MANUAL) 2 % (0-7); LYMPHOCYTES % (MANUAL) 10 % (19-48); MONOCYTES % (MANUAL) 8 % (3.4-9.0); NEUTROPHILS % (MANUAL) 80 % (40-74); RBC MORPHOLOGY COMMENT NORMAL
[2018-06-18 07:46] LABS: PLATELET ESTIMATE MODERATELY INCREASED; PLATELET MORPHOLOGY COMMENT FEW GIANT
[2018-06-18 08:00] VITALS: BP 143/72
[2018-06-18] MEDS: ASPIRIN 81 MG CHEW TAB PO SCH (08:33)
[2018-06-18] MEDS: METOPROLOL TARTRATE 25 MG TAB PO SCH (08:33)
[2018-06-18] MEDS: LEVOTHYROXINE SODIUM 75 MCG TAB PO SCH (08:33)
[2018-06-18 10:08] VITALS: BP 143/72
[2018-06-18] MEDS ORDERED: LEVAQUIN500 MG PO (10:41)
--- NOTE | 2018-06-18 11:00 | NUR ---
Discharge instructions and prescriptions given to the patient, explained to the patient and family that there was a decrease in Metoprolol, it was also provided on the written instructions. IV removed from right wrist with tip intact.
[2018-06-18 12:00] VITALS: BP 152/72
--- NOTE | 2018-06-18 18:54 | Progress Note ---
DATE: June 18, 2018 CARDIOLOGY PROGRESS NOTE SUBJECTIVE: The patient denies chest pain or shortness of breath. OBJECTIVE VITAL SIGNS: Temperature 96.1 degrees, pulse68, respiratory rate 18, blood pressure 152/72, oxygen saturation 98%. GENERAL: Awake and alert, in no acute distress. LUNGS: Clear to auscultation bilaterally. No wheezes or crackles. CARDIOVASCULAR: Normal rate. Irregularly irregular. No murmur. Normal S1, S2. ABDOMEN: Soft, nontender. EXTREMITIES: No edema. CARDIAC MEDICATIONS 1. Metoprolol tartrate 25 mg p.o. b.i.d. 2. Levothyroxine 75 mcg p.o. daily. 3. Aspirin 81 mg p.o. daily. 4. Atorvastatin 40 mg p.o. at bedtime. LABS: WBC 14.34, hemoglobin 10.7, hematocrit 34.9, platelets 622. Sodium 142, potassium 4, chloride 110, CO2 of 24, BUN 15, creatinine 1.03. TELEMETRY: Atrial fibrillation, rate controlled. IMPRESSION 1. Paroxysmal atrial fibrillation, rate controlled. 2. Bilateral lower lobe aspiration pneumonia, left worse than right. 3. Left posterior inferolateral chest wall hematoma. 4. Frequent falls. 5. Coronary artery disease. 6. Hypertension. 7. Hypothyroidism. 8. Leukocytosis. RECOMMENDATIONS: Patient is stable from a cardiac standpoint. He remains in atrial fibrillation. Continue beta-blockers for rate control. Given patient's frequent falls and chest wall hematoma, we will hold anticoagulation for now. He was instructed to follow up with his outpatient cardiology to discuss resuming. Continue current cardiac medications, otherwise. Antibiotics per primary service. Thank you for this consult. We will continue to follow. Job#: [id number] KAREN
== END 2018-06-18 13:48 | DRG 178 ==
LOC: ER 11:46 → ERHOLD 20:41 → MED/SURG2 06-14 10:18
PROVIDERS: ADMIT Internal Medicine; ATTEND Internal Medicine
DX: J69.0 Pneumonitis due to inhalation of food and vomit (principal); E87.2 Acidosis; I48.0 Paroxysmal atrial fibrillation; S20.222A Contusion of left back wall of thorax, initial encounter; W19.XXXA Unspecified fall, initial encounter; I25.10 Atherosclerotic heart disease of native coronary artery without angina pectoris; I10 Essential (primary) hypertension; E03.9 Hypothyroidism, unspecified; E78.5 Hyperlipidemia, unspecified; M19.90 Unspecified osteoarthritis, unspecified site; G25.0 Essential tremor; D46.9 Myelodysplastic syndrome, unspecified; E87.6 Hypokalemia; Z86.73 Personal history of transient ischemic attack (TIA), and cerebral infarction without residual deficits; I25.2 Old myocardial infarction; I34.0 Nonrheumatic mitral (valve) insufficiency; R13.10 Dysphagia, unspecified; Z79.82 Long term (current) use of aspirin; R91.1 Solitary pulmonary nodule
CPT/HCPCS: 36415; 71045; 71250; 74230; 80048; 80053; 81001; 82550; 82553; 83605; 83735; 84484; 85025; 85610; 85730; 87040; 87070; 87086; 87205; 87400; 87493; 93005; 93306; 94640; 96361; 97139; 99284; J0456; J0692; J2543; J7030

== ENCOUNTER → 2018-08-22 | Outpatient (CLI) | payer OTHER ==
[~2018-08-22] MED LIST changes: +ASPIRIN81 MG PO; +IOPAMIDOL 370 MG/ML 200 ML INFUS..BTL INJ ONE; +LEVAQUIN500 MG PO; +SODIUM CHLORIDE 0.9% 500ML 500 ML ONE; +SODIUM CHLORIDE 0.9% 50ML 50 ML ONE; +SYNTHROID75 MCG PO
[2018-08-22 11:26] LABS: CREATININE, SERUM 1.24 mg/dL (0.72-1.25)
--- NOTE | 2018-08-22 12:50 | Diagnostic Imaging Report ---
EXAMINATION: CT of the abdomen and pelvis with contrast. TECHNIQUE: Spiral CT images of the abdomen and pelvis were performed from the lung bases to the lesser trochanters after the intravenous administration of 100 cc Isovue-370 and the oral administration of water. Coronal and sagittal reformatted images were obtained. COMPARISON: CT chest without contrast 06/13/2018 CLINICAL HISTORY:Weight loss DISCUSSION: ABDOMEN/PELVIS: LOWER THORAX:Nearly resolved bilateral lower lobe airspace opacities and trace left pleural effusion. Minimal residual subsegmental atelectasis or scar persists. Right upper lobe pulmonary nodule described on the comparison study is not included on the current scan field. HEPATOBILIARY: No focal hepatic lesions. No intra-or extrahepatic biliary ductal dilation. The gallbladder has been removed. SPLEEN: 1.2 cm hypoattenuating lesion in the posterior aspect of the spleen seen on series 2 image 22. Additional 1 cm lesion in the upper pole of the spleen seen on series 2 image 7. No additional focal splenic lesion. The spleen is enlarged measuring 16 cm in craniocaudal span. PANCREAS: No focal masses or ductal dilatation. ADRENALS: No adrenal nodules. KIDNEYS/URETERS: Subcentimeter hypoattenuating lesions within both kidneys, too small to further characterize but likely to represent small cysts. No gross mass lesion. Mild left hydroureteronephrosis without calculus or hyperdense lesion in the left ureter. PELVIC ORGANS/BLADDER: The urinary bladder is unremarkable. Coarse prostatic calcifications. PERITONEUM/RETROPERITONEUM: No ascites. No pneumoperitoneum. LYMPH NODES: No pelvic sidewall, retroperitoneal, or mesenteric lymphadenopathy. VESSELS: Atherosclerotic calcification of the abdominal aorta, major branch vessels, and iliac arterial systems without aneurysmal dilatation. The iliac arterial systems are markedly tortuous. Portal vein, splenic vein, and central superior mesenteric vein are patent. GI TRACT: The large bowel shows no evidence of distention or wall thickening. Gas and fecal material are noted throughout. The appendix is not definitively identified. No right lower quadrant inflammatory change. No small bowel dilatation to suggest obstruction. BONES AND SOFT TISSUE: No osseous destructive lesions. Degenerative changes of the hips. Degenerative disc disease and facet arthropathy of the lumbar spine. left chest wall hematoma has resolved. Left inguinal hernia contains a mesenteric lymph node but no bowel. Calcified mesenteric lymph node in the central abdomen seen on series 2 image 48. No additional focal soft tissue abnormalities. IMPRESSION: No acute intra-abdominal or pelvic CT abnormalities. Mild left hydronephrosis and proximal hydroureter is of uncertain etiology as no calculus or mass lesion is identified within the left ureter. Further evaluation with CT urogram or urological consultation for possible retrograde pyelogram is suggested. Indeterminate lesions within the spleen, which may represent hemangiomas. MRI of the abdomen with and without contrast is suggested for further evaluation. Nonspecific splenomegaly. Atherosclerotic vascular disease. Signed by: Dr. Jeff Hernandez M.D. on 08/22/2018 12:46 PM
== END ==
LOC: CT 10:38
PROVIDERS: ATTEND Internal Medicine
DX: R63.4 Abnormal weight loss (principal)
CPT/HCPCS: 36415; 74177; 82565; 84520; 96360; J7040; Q9967